=== PATIENT | female | born 1955 | race Two or more races ===

== ENCOUNTER 2016-11-27 18:08 | Emergency (ER) | payer MEDICARE, OTHER ==
[2016-11-27] MEDS ORDERED: ALBUTEROL NEB 2.5 MG/3 ML VIAL.NEB NEB ONE ×2 (18:53→20:30)
[2016-11-27 19:17] LABS: ABSOLUTE NEUTROPHIL COUNT 2.4 K/mm3 (1.8-7.7); BASO % 0.7 % (0.2-1.0); EOS # 0.6 (0.0-0.5); EOS % 9.5 % (0.9-2.9); HEMATOCRIT 45.9 % (37.0-47.0); HEMOGLOBIN 15.3 gm/l (12.0-16.0); IMM NEUT% 0.2 % (0-1); LYMPH # 2.5 (1.0-4.8); LYMPH % 40.6 % (15-45); MEAN CELL VOLUME 88.4 fl (81.0-99.0); MEAN CORPUSCULAR HEMOGLOBIN 29.5 pg (27.0-31.0); MEAN CORPUSCULAR HGB CONC 33.3 g/dl (33.0-37.0); MEAN PLATELET VOLUME 10.6 fl (7.4-10.4); MONO # 0.6 (0.0-0.8); PLATELET COUNT 173 K/mm3 (130-400); RED CELL DISTRIBUTION WIDTH 11.8 % (11.5-14.5)
[2016-11-27 19:29] LABS: ALB/GLOB RATIO 1.1 (>1.0); ALBUMIN 3.9 gm/dL (3.5-5.7); CALCIUM 9.2 mg/dL (8.6-10.3)
--- NOTE | 2016-11-27 20:22 | CT ---
EXAMINATION:CT SCAN HEAD W/O CONTRAST. CLINICAL INDICATION:Worsening facial droop. Difficulty breathing. Right arm tremors. COMPARISON: Prior examination dated 09/22/2014. TECHNIQUE: A Cranial CT was performed using a [employer] multislice CT scanner. Axial images were acquired from just above the vertex through the skull base. 4 mm stacked axial, sagittal, and coronal reconstructed images were reviewed. FINDINGS: Moderate encephalomalacia within the left parietal distribution is unchanged from the prior examination. The CSF containing spaces remain prominent throughout. Diminished attenuation of the periventricular white matter tracts is similar. No acute intracranial hemorrhage or extra-axial fluid collections are identified.:There is no mass effect or midline shift. The posterior fossa is unremarkable. The cerebellar pontine angle cisterns are normal and symmetric. The osseous structures are intact. The paranasal sinuses are unremarkable. The orbits and retrobulbar regions are unremarkable.:The mastoid sinuses are clear. The scalp and adjacent soft tissues are unremarkable. IMPRESSION: 1. No acute intracranial abnormality is identified. 2. Moderate encephalomalacia left mid parietal distribution unaltered. 3. Global diffuse atrophy and microvascular ischemic changes. Findings were communicated by [facility] to the emergency department at: 1952 hours 11/27/2016
--- NOTE | 2016-11-27 20:24 | RAD ---
EXAMINATION:CHEST - 2 VIEWS CLINICAL INDICATION: Cough COMPARISON: 09/22/2014. FINDINGS: Cardiomegaly with mild aortic ectasia is similar to the prior study. There is no adenopathy identified. There is no pleural effusion. The lungs are clear. The osseous structures are unremarkable for age. There is mild pulmonary vascular congestion. IMPRESSION: No acute cardiopulmonary process is identified. Cardiomegaly with mild pulmonary vascular congestion is unchanged.
[2016-11-27] MEDS ORDERED: PREDNISONE 20 MG TABLET ONE (20:25)
== END 2016-11-27 22:05 | disposition home or self-care (01) ==
LOC: ED 18:08
DX: R53.1 Weakness (principal); R06.2 Wheezing; R41.82 Altered mental status, unspecified; E11.9 Type 2 diabetes mellitus without complications; Z86.73 Personal history of transient ischemic attack (TIA), and cerebral infarction without residual deficits; Z79.84 Long term (current) use of oral hypoglycemic drugs; Z79.82 Long term (current) use of aspirin
CPT/HCPCS: 85025; 82550; 80053; 84484; 71020; 70450; 94640 ×2; 99284; 93005; 99283; J7512